=== PATIENT | female | born 1955 | race Caucasian/White ===

== ENCOUNTER 2019-03-29 08:44 | Outpatient (REF) | payer BC, SELFPAY ==
[2019-03-29 11:29] LABS: Estmated Average Glucose 137; Hemoglobin A1C 6.4 % (4.0-6.0)
[2019-03-29 13:21] LABS: Chol HDL Ratio 5.11 mg/dL (0.0-4.40); Cholesterol 225 mg/dL (0-200); Glucose 116 mg/dL (65-115); HDL Cholesterol 44 mg/dL (60-100); LDL Cholesterol Calculated 140 mg/dL (50-129); LDL HDL Ratio 3.18 RATIO (0.00-3.22); Triglycerides 204 mg/dL (0-150)
== END 2019-03-29 08:45 | disposition home or self-care (01) ==
LOC: LAB 08:44
PROVIDERS: Family Provider Family Medicine; Visit Provider Dermatology
DX: Z01.89 Encounter for other specified special examinations (principal)
CPT/HCPCS: 80061; 82947; 83036

== ENCOUNTER 2020-10-09 10:03 | Outpatient (CLI) | payer OTHER, SELFPAY ==
--- NOTE | 2020-10-09 10:10 | MM_ITS ---
WS: [id number] Bilateral screening digital mammogram, 10/09/2020 Clinical Data: SCREENING Comparison: 09/04/2018, 12/19/2016, 06/16/2015, 02/25/2014, 01/04/2013, 08/17/2011, 06/09/2009, 01/07/2008, 12/26/2006. Findings: The breast parenchymal pattern shows no glandular tissue. No spiculated masses or clustered calcifica tions are seen. There are no secondary signs of carcinoma. MM/[place] [id number] Impression: 1. Negative bilateral mammogram unchanged. 2. Recommend annual screening mammograms. BIRADS: 1-Negative FOLLOW UP: 1 Year Follow-up The CAD work checker was used.
== END 2020-10-09 10:04 | disposition home or self-care (01) ==
LOC: RADSHAW 10:08
PROVIDERS: PCP Family Medicine; Visit Provider Family Medicine
DX: Z12.31 Encounter for screening mammogram for malignant neoplasm of breast (principal)
CPT/HCPCS: 77067

== ENCOUNTER → 2020-11-09 09:51 | Outpatient (BNVA) | payer OTHER, SELFPAY | PROVIDERS: PCP Family Medicine; Visit Provider Nurse Practitioner Family | DX: Z20.822 Contact with and (suspected) exposure to COVID-19 (principal) | CPT/HCPCS: 87635 ==

== ENCOUNTER → 2021-01-12 14:17 | Outpatient (BNVA) | payer OTHER, SELFPAY | PROVIDERS: PCP Family Medicine; Visit Provider Orthopaedic Surgery | DX: M50.321 Other cervical disc degeneration at C4-C5 level (principal); M25.551 Pain in right hip; M47.812 Spondylosis without myelopathy or radiculopathy, cervical region; M54.50 Low back pain, unspecified; Z98.890 Other specified postprocedural states | CPT/HCPCS: 72050; 72110; 73502 ==

== ENCOUNTER → 2021-10-18 13:03 | Outpatient (BNVA) | payer MEDICARE, SELFPAY | PROVIDERS: PCP Family Medicine; Visit Provider Student in an Organized Health Care Education/Training Program | DX: G56.03 Carpal tunnel syndrome, bilateral upper limbs (principal) | CPT/HCPCS: 73130; 99204 ==

== ENCOUNTER 2021-10-27 06:41 | Day surgery (SDC) | payer MEDICARE, SELFPAY ==
[2021-10-26 11:55] VITALS: BMI 39.7
[2021-10-27 07:17] VITALS: BP 153/92; PULSE 57; RESP 18; TEMP 36.5; O2SAT 95
[2021-10-27] MEDS: acetaminophen 1,000 MG/100 ML PIGGYBACK 400 MG IV (07:35)
[2021-10-27] MEDS: sodium chloride 0.9% 1,000 ML 30 ML IV (07:41)
[2021-10-27] MEDS: ketorolac 30 mg/mL INJ IVP (07:45)
--- NOTE | 2021-10-27 07:58 | W.PM.OPSUD ---
Surgery/Procedure H&P Update DATE OF PROCEDURE: October 27, 2021 DATE H&P PERFORMED: 10/18/21 CHANGES TO PREVIOUS DOCUMENTATION: None PREOP DIAGNOSIS: Right carpal tunnel syndrome PRIMARY INDICATION FOR PROCEDURE: Right carpal tunnel syndrome PLANNED PROCEDURE: Operation Date: 10/27/21 08:10 Proposed Procedures p RIGHT CARPAL TUNNEL RELEASE [id number],M79.643(Right) - Denis Duron DO
[2021-10-27] MEDS: clindamycin 600 MG/50 ML PREMIX 100 MG IV (08:07)
--- NOTE | 2021-10-27 08:18 | ANES.PREANE2 ---
Pre-Anesthetic Assessment Height/Weight: Height 1.65 m Weight 108.409 kg Temp Pulse Resp BP Pulse Ox O2 Del Method 97.7 F 57 L 18 153/92 95 10/27/21 07:17 10/27/21 07:17 10/27/21 07:17 10/27/21 07:17 10/27/21 07:17 10/27/21 07:17 Preop Diagnosis: Right carpal tunnel syndrome Operation Date: 10/27/21 08:10 Proposed Procedures p RIGHT CARPAL TUNNEL RELEASE [id number],M79.643(Right) - Denis Duron, Familial anesthetic complications: none Was Beta Venecia taken within 24 hours: Yes Was Clonidine taken within 24 hours: N/A Last intake: Intake Last Liquid Date 10/27/21 Last Liquid Time 06:00 Last Solid Date 10/26/21 Last Solid Time 18:00 Social No alcohol and No tobacco Exam alert, oriented x 3, clear to auscultation bilaterally and regular rate & rhythm Airway Submandibular: within normal limits Cervical ROM: within normal limits Mallampati: Class II Dentition: full Pulmonary Sleep Apnea CV/HEM Hypertension Metabolic Morbid Obesity and Thyroid Disease [facility] [place] Lower Back Pain and Osteoarthritis/DJD Anesthetic Plan ASA status: 3 Anesthesia: MAC Medications/Allergies Home Medications Medication Instructions Recorded Confirmed Last Taken Type citalopram 20 mg tablet 20 mg PO DAILY 11/09/20 10/27/21 10/26/21 History hydrochlorothiazide 12.5 mg capsule 12.5 mg PO DAILY 11/09/20 10/27/21 10/26/21 History latanoprost 0.005 % eye drops 1 drp ophthalmic (eye) DAILY 11/09/20 10/27/21 10/26/21 History levothyroxine 75 mcg capsule 75 mcg PO DAILY 11/09/20 10/27/21 10/26/21 History metoprolol succinate 50 mg 50 mg PO DAILY 11/09/20 10/27/21 10/27/21 History tablet,extended release 24 hr gabapentin 100 mg capsule 100 mg PO DAILY 01/12/21 10/27/21 10/26/21 History Allergies Allergy/AdvReac Type Severity Reaction Status Date / Time Penicillins Allergy Intermediate rash Verified 10/27/21 07:03 Sulfa (Sulfonamide Allergy Intermediate rash Verified 10/27/21 07:03 Antibiotics) Current Medications Generic Name Dose Route Start Last Admin Trade Name Freq PRN Reason Stop Dose Admin Sodium Chloride 1,000 mls @ 30 mls/hr 10/27/21 07:00 10/27/21 07:41 Sodium Chloride 0.9% IV 10/28/21 06:59 30 mls/hr .Q24H TERRY Administration PFSH Anesthesia Medical History (Updated 10/19/21 @ 09:09 by Denis Duron DO) Left carpal tunnel syndrome Right carpal tunnel syndrome Social History Smoking and tobacco status: never smoked Data Anesthesia Cardiac Studies: No Data to Display
[2021-10-27 08:52] VITALS: BP 142/73; PULSE 54; RESP 12; TEMP 36.3; O2SAT 100
[2021-10-27 08:56] VITALS: BP 154/85; PULSE 51; RESP 12; TEMP 36.3; O2SAT 96
[2021-10-27 09:14] VITALS: BP 143/85; PULSE 52; RESP 18; TEMP 36.1; O2SAT 97
--- NOTE | 2021-10-27 13:32 | PM.OP2 ---
Brief Operative Note Date of procedure: 10/27/21 Pre-op diagnosis: Right carpal tunnel syndrome Post-op diagnosis: same Procedure Done: Right carpal tunnel release Surgeon: Denis Duron Estimated blood loss (mL): 2 Complications: None Post-op Plan: Patient to recover in PACU. She is in stable condition. She will receive appropriate discharge instructions as well as prescriptions. Given instructions pertaining to her dressing. She will follow-up in the orthopedic office with myself Dr. Duron in 2 weeks. She understands she has any question she may contact the office Condition: stable Disposition: same day Coding Level of Care Code Acute Licensed Physical Therapist for Ev Bello
--- NOTE | 2021-10-27 13:33 | PM.PACU ---
PACU note Narrative: Patient seen and evaluated in PACU immediately postoperatively. Patient dressing on in place clean dry and intact. Her fingers are warm well perfused. Compartment soft and compressible. Brisk capillary refill less than 2 seconds. Patient is able to make a fist and extend her fingers. Pain well controlled. Patient did receive local and still has some decreased sensation diffusely throughout the hand. Exam: awake (Dressing on in place clean dry and intact. Fingers warm well perfused. See narrative for detailed exam) Disposition: discharged
--- NOTE | 2021-10-27 13:35 | PM.OP ---
Operative Report Date of procedure: October 27, 2021 Pre-op diagnosis: Preop Diagnosis Right carpal tunnel syndrome Post-op diagnosis: Right carpal tunnel syndrome Procedure done: Right carpal tunnel release Specimens removed/disposition: None Surgeon: Denis Duron DO Estimated blood loss (mL): 2 14 IV fluids: See anesthesia record Complications: None Findings: See procedure note in detail Condition: stable Disposition: same day Brief History: Patient is a pleasant 66-year-old female who presented to my office with complaints of bilateral carpal tunnel syndrome. She had previous EMG findings back in 2018 which showed carpal tunnel syndrome at that time. This standpoint she is exhausted conservative treatment at this point understands the risk benefits complication alternatives and through shared decision-making she elected to proceed with surgical intervention. See my office note for further details. She understands the risk benefits complications alternatives surgical intervention. Risks included but are not limited to make a better make it worse, infection, wound dehiscence, injury to nerves or vessels, decreased function and hand. However with understanding of these risks she does agree to proceed. All questions answered. Consent was obtained in office however was reviewed in the preoperative holding area. Procedure: Patient was seen evaluated in the preoperative holding area. Consent was reviewed with patient. The correct extremity was then marked. Patient seen evaluated by anesthesia. She was taken to the operative suite by the anesthesia department and transferred to the OR table in supine position with an arm table to the right upper extremity. She then underwent anesthesia per the anesthesia department. A nonsterile tourniquet applied to the right upper extremity. The right upper extremity was then prepped and draped in standard orthopedic fashion. Patient received appropriate preoperative antibiotics. Final timeout performed. Esmarch tourniquet was used to exsanguinate the right upper extremity tourniquet was inflated to 250 mmHg. I next luc out my landmarks of Freeman's cardinal line as well as the line of the fourth ray. This marked the distal extent of my incision and in line with the fourth ray on the ulnar side through patient's longitudinal crease directly over the carpal tunnel a small incision was then made. 15 blade scalpel excision through skin subcutaneous tissue. Directly down over to the palmar fascia. The palmar fascia was then split longitudinally. Directly under this noted was the palmaris brevis as well as the transverse carpal ligament. Sharp scalpel excision was used to feather slowly with care not to plunge and once I encountered the floor of the transverse carpal ligament I then moved to the Littler dissection scissors. Under direct visualization through loupe magnification I started with releasing the transverse carpal ligament distally Marija reach the palmar fat. Once this was appropriately released distally with no area of entrapment and care to stay directly onto the transverse ligament I then moved proximally. Blunt spread dissection was made superiorly to the transverse carpal ligament. I then placed a retractor superficial to the transverse carpal ligament under direct visualization through slow scissoring technique I then released the proximal extent of the transverse carpal ligament. Once this was done I then inspected the carpal tunnel which all including tendons appeared normal intact with no masses noted. The nerve did appear to be hourglass in shape due to significant compression. I then utilized a [place] to follow the carpal tunnel both proximally and distally. I did note a small band of medial antebrachial fascia just proximal to the wrist crease under direct visualization this was then appropriately released to prevent any chance for adhesions or other areas of entrapment. My Littler dissection scissors were curved ulnarly with care to not injure the palmar cutaneous branch. The standpoint the entire carpal tunnel was fully decompressed and released. Wound was thoroughly irrigated. I then deflated the tourniquet. Hemostasis was adequate with electrocautery as well as pressure. I then closed the skin incision with interrupted horizontal mattress nylon suture. Patient was then dressed with Xeroform 4 x 4's Curlex and a Michelet wrap for a bulky soft dressing. She was awakened from anesthesia and taken to PACU in stable condition. Disposition: Patient recovered in PACU. Patient to discharge later today. Patient received appropriate discharge directions as well as pain medication postoperatively. She understands her instructions and will follow up with me in office in 2 weeks. Patient understands if she had any questions she can contact the office.
--- NOTE | 2021-10-27 14:45 | ANE.PACU2 ---
Inpatient post-anesthesia follow up: Airway intact: Yes Vital signs: Temperature 97 F Pulse Rate 52 Respiratory Rate 18 Blood Pressure 143/85 Pulse Oximetry 97 Oxygen Delivery Me thod Room Air Oxygen Flow Rate Fraction of Inspir ed Oxygen Hydration adequate: Yes Nausea and vomiting: No Pain level: 1 Mental status: Baseline
== END 2021-10-27 09:48 | disposition home or self-care (01) ==
PROVIDERS: PCP Family Medicine; Visit Provider Student in an Organized Health Care Education/Training Program
PROC: (CPT 64721; principal; 2021-10-27 08:00)
DX: G56.03 Carpal tunnel syndrome, bilateral upper limbs (principal); G47.30 Sleep apnea, unspecified; I10 Essential (primary) hypertension; E07.9 Disorder of thyroid, unspecified; E66.01 Morbid (severe) obesity due to excess calories; Z68.39 Body mass index [BMI] 39.0-39.9, adult; Z88.0 Allergy status to penicillin; Z88.2 Allergy status to sulfonamides
CPT/HCPCS: 64721; J1100; J1885; J2250; J2405; J2704; J2795; J3010; J3490; J7030

== ENCOUNTER → 2021-11-18 08:57 | Outpatient (BNVA) | payer MEDICARE, SELFPAY | PROVIDERS: PCP Family Medicine; Visit Provider Surgery | DX: Z12.11 Encounter for screening for malignant neoplasm of colon (principal) | CPT/HCPCS: 99024 ==

== ENCOUNTER → 2021-11-19 09:37 | Outpatient (BNVA) | payer MEDICARE, SELFPAY | PROVIDERS: PCP Family Medicine; Visit Provider Student in an Organized Health Care Education/Training Program | DX: G56.01 Carpal tunnel syndrome, right upper limb (principal) | CPT/HCPCS: 99024 ==

== ENCOUNTER → 2021-11-24 08:55 | Outpatient (BNVA) | payer MEDICARE, SELFPAY | PROVIDERS: PCP Family Medicine; Visit Provider Family Medicine | DX: I10 Essential (primary) hypertension (principal); E03.9 Hypothyroidism, unspecified; M19.90 Unspecified osteoarthritis, unspecified site | CPT/HCPCS: 80053; 80061; 84443 ==

== ENCOUNTER 2022-01-07 08:27 | Day surgery (SDC) | payer MEDICARE, SELFPAY ==
[2022-01-05 11:32] VITALS: BMI 39.1
[2022-01-07 08:47] VITALS: BP 178/107; PULSE 61; RESP 18; TEMP 35.9; O2SAT 97
[2022-01-07] MEDS: sodium chloride 0.9% 1,000 ML 30 ML IV (09:04)
--- NOTE | 2022-01-07 09:29 | W.PM.OPSFHP ---
Same Day Surgery H&P Indication for Procedure/HPI DATE OF PROCEDURE: January 07, 2022 CHIEF COMPLAINT/INDICATIONFOR SURGICAL PROCEDURE: Screening colonoscopy PREOP DIAGNOSIS: Screening colonoscopy PLANNED PROCEDURE: Operation Date: 01/07/22 10:00 Proposed Procedures p Colonoscopy 00639,Z12.11(Not Applicable) - Epifanio Lott MD This is a pleasant 66 years old female patient comes today for screening colonoscopy. Patient had colonoscopy before 10 years and was reported as normal per her description. Had surgery for anal fissure by Dr. Ryan at the time of her gallbladder surgery and she describes it. Reports her father had history of colon cancer in his 70s. ROS All systems have been reviewed negative except as for the above or per problem list. Medications/Allergies* Home Medications Medication Instructions Recorded Confirmed Type latanoprost 0.005 % eye drops 1 drp ophthalmic (eye) DAILY 11/09/20 01/05/22 History metoprolol succinate 50 mg 50 mg PO DAILY 11/09/20 01/05/22 History tablet,extended release 24 hr gabapentin 100 mg capsule 100 mg PO DAILY 01/12/21 01/05/22 History Allergies/Adverse Reactions Allergy/AdvReac Type Severity Reaction Status Date / Time Penicillins Allergy Intermediate rash Verified 01/07/22 09:34 Sulfa (Sulfonamide Allergy Intermediate rash Verified 01/07/22 09:34 Antibiotics) Current Medications: Generic Name Dose Route Start Last Admin Trade Name Freq PRN Reason Stop Dose Admin Sodium Chloride 1,000 mls @ 30 mls/hr 01/07/22 08:45 01/07/22 09:04 Sodium Chloride 0.9% IV 01/08/22 08:44 30 mls/hr .Q24H TERRY Administration Pertinent History/Comorbid Conditions* Medical History (Updated 12/17/21 @ 13:13 by John Pérez MD) Hypertension Hypothyroid Left carpal tunnel syndrome Osteoarthritis Right carpal tunnel syndrome Social History Smoking and tobacco status: never smoked Pertinent Exam Findings alert, oriented x 3, clear to auscultation bilaterally, regular rate & rhythm and procedure specific exam findings (Abdominal exam nontender nondistended soft) Recommendations Surgery/Procedure today (Colonoscopy with possible biopsy) Other Plans: Plan of care; After thorough history and physical examination and reviewing the chart, plan to perform screening colonoscopy. I discussed with the patient in details the risks,benefits,alternatives and indications.The risk of aspiration, bleeding, soft tissue injury, perforation of the colon ,missed lesions and other potential concomitant complications were explained to the patient in details,also the potential need for Laproscoy/Laparotomy to repair any related complications including but not limited to colectomy and or Closotomy.The patient understood this well and did agree to proceed. Rationale was carefully and clearly discussed with the patient.Appropriate informed consent have been reviewed and signed All questions have been answered and all concerns have been addressed to patient's satisfaction. Verbal and written Instructions were given to the patient for colonoscopy prep Coding Level of Care Code Acute Service Unit Operator for Ev Bello
--- NOTE | 2022-01-07 09:38 | ANES.PREANE2 ---
Pre-Anesthetic Assessment Height/Weight: Height 1.65 m Weight 106.594 kg Temp Pulse Resp BP Pulse Ox O2 Del Method 96.7 F L 61 18 178/107 97 01/07/22 08:47 01/07/22 08:47 01/07/22 08:47 01/07/22 08:47 01/07/22 08:47 01/07/22 08:47 Preop Diagnosis: Screening colonoscopy Operation Date: 01/07/22 10:00 Proposed Procedures p Colonoscopy 81448,Z12.11(Not Applicable) - Epifanio Lott MD Was Beta Venecia taken within 24 hours: Yes Last intake: Intake Last Liquid Date 01/06/22 Last Liquid Time 21:30 Last Solid Date 01/05/22 Last Solid Time 18:00 Social No alcohol and No tobacco Exam alert, oriented x 3, clear to auscultation bilaterally and regular rate & rhythm History/ROS No significant history except as noted and No significant complaints Pulmonary Sleep Apnea CV/HEM Hypertension None reported Hepatic None reported GI None reported Metabolic Morbid Obesity [facility] [place] Fibromyalgia and Osteoarthritis/DJD Anesthetic Plan ASA status: 3 Anesthesia: Anesthesia Evaluation and MAC Risk of > 500 ml blood loss (7ml/kg in children): No Medications/Allergies Home Medications Medication Instructions Recorded Confirmed Last Taken Type latanoprost 0.005 % eye drops 1 drp ophthalmic (eye) DAILY 11/09/20 01/05/22 01/06/22 History metoprolol succinate 50 mg 50 mg PO DAILY 11/09/20 01/05/22 01/06/22 History tablet,extended release 24 hr gabapentin 100 mg capsule 100 mg PO DAILY 01/12/21 01/05/22 01/06/22 History citalopram 20 mg tablet 20 mg PO DAILY #90 tabs 12/15/21 01/05/22 01/06/22 Rx hydrochlorothiazide 12.5 mg capsule 12.5 mg PO DAILY #90 caps 12/15/21 01/05/22 01/07/22 06:30 Rx levothyroxine 75 mcg capsule 75 mcg PO DAILY #90 caps 12/15/21 01/05/22 01/07/22 06:30 Rx c-pap supplies #1 ea 12/21/21 01/05/22 01/06/22 Rx Allergies Allergy/AdvReac Type Severity Reaction Status Date / Time Penicillins Allergy Intermediate rash Verified 01/07/22 09:34 Sulfa (Sulfonamide Allergy Intermediate rash Verified 01/07/22 09:34 Antibiotics) Current Medications Generic Name Dose Route Start Last Admin Trade Name Freq PRN Reason Stop Dose Admin Sodium Chloride 1,000 mls @ 30 mls/hr 01/07/22 08:45 01/07/22 09:04 Sodium Chloride 0.9% IV 01/08/22 08:44 30 mls/hr .Q24H TERRY Administration PFSH Anesthesia Medical History (Updated 12/17/21 @ 13:13 by John Pérez MD) Hypertension Hypothyroid Left carpal tunnel syndrome Osteoarthritis Right carpal tunnel syndrome Social History Smoking and tobacco status: never smoked Data Anesthesia Cardiac Studies: No Data to Display
[2022-01-07 10:16] VITALS: BP 129/61; PULSE 60; RESP 16; TEMP 36.1; O2SAT 96
[2022-01-07 10:25] VITALS: BP 120/67; PULSE 56; RESP 16; O2SAT 96
[2022-01-07 10:30] VITALS: BP 132/76; PULSE 57; RESP 16; O2SAT 96
--- NOTE | 2022-01-07 12:42 | ANE.PACU2 ---
Inpatient post-anesthesia follow up: Airway intact: Yes Vital signs: Temperature 97 F Pulse Rate 57 Respiratory Rate 16 Blood Pressure 132/76 Pulse Oximetry 96 Oxygen Delivery Me thod Room Air Oxygen Flow Rate 4 Fraction of Inspir ed Oxygen Hydration adequate: Yes Nausea and vomiting: No Pain level: 1 Mental status: Baseline
== END 2022-01-07 10:40 | disposition home or self-care (01) ==
PROVIDERS: PCP Family Medicine; Visit Provider Surgery
PROC: 0DJD8ZZ Inspection of Lower Intestinal Tract, Via Natural or Artificial Opening Endoscopic (ICD-10-PCS; CPT 45378; principal; 2022-01-07 10:00)
DX: Z12.11 Encounter for screening for malignant neoplasm of colon (principal); K57.30 Diverticulosis of large intestine without perforation or abscess without bleeding; I10 Essential (primary) hypertension; E03.9 Hypothyroidism, unspecified; M19.90 Unspecified osteoarthritis, unspecified site; G47.30 Sleep apnea, unspecified; M79.7 Fibromyalgia
CPT/HCPCS: G0121; J7030

== ENCOUNTER → 2022-04-18 15:31 | Outpatient (BNVA) | payer MEDICARE, SELFPAY | PROVIDERS: PCP Family Medicine; Visit Provider Family Medicine | DX: G56.01 Carpal tunnel syndrome, right upper limb (principal); E03.9 Hypothyroidism, unspecified; I10 Essential (primary) hypertension | CPT/HCPCS: 84443 ==

== ENCOUNTER 2022-08-10 07:46 | Outpatient (CLI) | payer MEDICARE, SELFPAY ==
--- NOTE | 2022-08-10 08:02 | MM_ITS ---
WS: [id number] SCREENING DIGITAL BREAST TOMOSYNTHESIS MAMMOGRAM WITH CAD HISTORY: SCREENING COMPARISON: 10/09/2020, 09/04/2018 Bilateral CC and MLO with tomosynthesis and synthetic mammography submitted. Computer aided detection analyzed. Breast composition: There are scattered areas of fibroglandular density. Increasing size of the lobul ated mass LEFT breast at 6:00, anterior to middle depth. Mass measures 14 x 8 mm. There are additiona l scattered asymmetries and calcifications which are stable. MM/[place] [id number] IMPRESSION: BI-RADS: 0-Incomplete: Need additional imaging evaluation FOLLOW UP: Need Additional Imaging Recommendation: Limited LEFT breast ultrasound 6:00.
== END 2022-08-10 07:47 | disposition home or self-care (01) ==
PROVIDERS: PCP Family Medicine; Visit Provider Family Medicine
DX: Z12.31 Encounter for screening mammogram for malignant neoplasm of breast (principal); N63.25 Unspecified lump in the left breast, overlapping quadrants
CPT/HCPCS: 77063; 77067

== ENCOUNTER → 2022-08-12 09:46 | Outpatient (BNVA) | payer MEDICARE, SELFPAY | PROVIDERS: PCP Family Medicine; Visit Provider Student in an Organized Health Care Education/Training Program | DX: M70.62 Trochanteric bursitis, left hip (principal) | CPT/HCPCS: 20610; 99214; J3301; J3490 ==

== ENCOUNTER 2022-09-13 12:26 | Outpatient (CLI) | payer MEDICARE, SELFPAY ==
--- NOTE | 2022-09-13 12:40 | US_ITS ---
WS: [id number] ULTRASOUND LEFT BREAST HISTORY: ABNORMAL MAMMO COMPARISON: 08/10/2022 TECHNIQUE: 2-D and Doppler. Lobulated cyst at 6:00, 2 cm from the nipple measures 1.2 x 0.9 x 0.8 cm. This corresponds in size an d shape to the mammographic abnormality. There are additional smaller cysts at 6:00. No solid mass. US/US breast LT limited* [id number] IMPRESSION: BI-RADS: 2-Benign FOLLOW-UP: 1 Year Follow-up Increasing size of the mass in the LEFT breast at 6:00 corresponds to a benign cyst.
== END 2022-09-13 12:27 | disposition home or self-care (01) ==
PROVIDERS: PCP Family Medicine; Visit Provider Family Medicine
DX: N60.02 Solitary cyst of left breast (principal); R92.8 Other abnormal and inconclusive findings on diagnostic imaging of breast
CPT/HCPCS: 76642; J3301; J3490

== ENCOUNTER → 2022-11-22 14:46 | Outpatient (BNVA) | payer MEDICARE, SELFPAY | PROVIDERS: PCP Family Medicine; Visit Provider Student in an Organized Health Care Education/Training Program | DX: M70.62 Trochanteric bursitis, left hip; S73.192A Other sprain of left hip, initial encounter; X58.XXXA Exposure to other specified factors, initial encounter | CPT/HCPCS: 99213 ==

== ENCOUNTER 2023-06-11 07:41 | Emergency (ER) | payer MEDICARE, SELFPAY ==
[2023-06-11] VITALS (14 sets, daily range): BP systolic 152–203; BP diastolic 85–109; PULSE 50–66; RESP 12–18; TEMP 36.4; O2SAT 97–100; BMI 39.2
--- NOTE | 2023-06-11 08:08 | CTR_ITS ---
PROCEDURE INFORMATION: Exam: CT Head Without Contrast Exam date and time: 06/11/2023 8:25 AM Age: 67 years old Clinical indication: Dizziness and visual disturbance; Additional info: Dizziness vision changes TECHNIQUE: Imaging protocol: Computed tomography of the head without contrast. Radiation optimization: All CT scans at this facility use at least one of these dose optimization techniques: automated exposure control; mA and/or kV adjustment per patient size (includes targeted exams where dose is matched to clinical indication); or iterative reconstruction. COMPARISON: CR XR cervical spine 4-5V [id number] 01/12/2021 2:24 PM RADIATION DOSE METRICS: Total DLP (mGy-cm): 1075.68 FINDINGS: Brain: Normal. No hemorrhage. Unremarkable white matter. No mass effect. Cerebral ventricles: No ventriculomegaly. Paranasal sinuses: Visualized sinuses are unremarkable. No fluid levels. Mastoid air cells: Visualized mastoid air cells are well aerated. Bones/joints: Unremarkable. No acute fracture. Soft tissues: Unremarkable. CT/CT head wo con* [id number] IMPRESSION: No acute intracranial abnormality.
--- NOTE | 2023-06-11 08:08 | XRR_ITS ---
PROCEDURE INFORMATION: Exam: XR Chest Exam date and time: 06/11/2023 8:24 AM Age: 67 years old Clinical indication: Cough and dyspnea; Additional info: Dyspnea/cough TECHNIQUE: Imaging protocol: Radiologic exam of the chest. Views: 1 view. COMPARISON: CR XR cervical spine 4-5V [id number] 01/12/2021 2:24 PM FINDINGS: Lungs: Unremarkable. No consolidation. Pleural spaces: Unremarkable. No pleural effusion. No pneumothorax. Heart/Mediastinum: Unremarkable. No cardiomegaly. Bones/joints: Degenerative changes in the bones. Cervical fixation hardware is partially imaged. XR/XR chest 1V portable [id number] IMPRESSION: No acute cardiopulmonary disease.
--- NOTE | 2023-06-11 08:41 | ED_ITS ---
HPI - Dizziness 2 General: Chief Complaint: Dizziness Stated Complaint: dizzy, double vision Time Seen by Provider: 06/11/23 07:42 Source: patient Mode of arrival: ambulatory History of Present Illness: HPI Narrative: 67-year-old female presents to the emerg ency room with complaint of dizziness and double vision. If she has both of her eyes open she has double vision but when she closes either eye the double vision goes away. She denies any chest pain or headache. Blood pressure is elevated she did take all of her blood pressure medicine takes her Toprol at night and hydrochlorothiazide in the morning. MD elicited complaint: dizziness Timing: gradual onset Associated symptoms: Denies abnormal vaginal bleeding, change in hearing, chest pain, chills, cough, diaphoresis, ear discharge, ear pressure, fevers/chills, headache(s), malaise, nausea, nasal congestion, palpitations, rash, short of breath, syncope, tinnitus, vomiting or weakness Review of Systems 2 Const: Denies: fever(s), chills, malaise or diaphoresis ENMT: Denies: ear discharge, change in hearing, tinnitus or nasal congestion Card: Denies: chest pain, palpitations or syncope Resp: Denies: dyspnea GI: Denies: abdominal pain, nausea or vomiting : Denies: dysuria, urinary frequency or urinary urgency Musc: Denies: neck pain or back pain Skin/Breast: Denies: rash Neuro: Denies: headache(s) PFSH ED 2 PFSH: Medical History Osteoarthritis Hypothyroid Hypertension Left carpal tunnel syndrome Right carpal tunnel syndrome Surgical History H/O cervical spine surgery H/O Spinal surgery Social History Smoking and tobacco/nicotine status: never used tobacco/nicotine Alcohol intake: never Physical Exam 2 Const: COMMON NORMALS: no acute distress GENERAL APPEARANCE: cooperative and comfortable ORIENTATION/CONSCIOUSNESS: Yes awake, Yes oriented to person, Yes oriented to place and Yes oriented to time HENMT: COMMON NORMALS: normocephalic, atraumatic and hearing grossly normal bilaterally HEAD & SCALP: normocephalic and atraumatic Resp: COMMON NORMALS: normal respiratory effort, No retractions, No use of accessory muscles and clear to auscultation bilaterally AUSCULTATION: clear to auscultation bilaterally Cardio: COMMON NORMALS: regular rate, regular rhythm and No murmurs present (Cardio) RATE: regular rate RHYTHM: regular rhythm GI: COMMON NORMALS: Soft to palpation and No hepatosplenomegaly present A USCULTATION: Yes normoactive bowel sounds PALPATION: Yes Soft to palpation, No Tenderness to palpation present (GI), No Guarding due to palpation present (GI) and Yes No hepatosplenomegaly present Extremity: COMMON NORMALS: normal to inspection, capillary refill normal, no clubbing, cyanosis or edema, no calf tenderness and no pedal edema Neuro: SENSORIUM/ORIENTATION: Yes oriented to person, Yes oriented to place and Yes oriented to time OTHER: No focal neurologic deficits noted no facial asymmetry equal movements in all extremities. No nystagmus. Skin: COMMON NORMALS: no rashes or lesions noted GENERAL SKIN EXAM: no rashes or lesions noted Course 2 Vital Signs: Vital signs: Vital Signs Temperature 97.5 F L 06/11/23 13:30 Pulse Rate 54 L 06/11/23 13:30 Respiratory Rate 15 06/11/23 13:30 Blood Pressure 195/89 06/11/23 13:30 Pulse Oximetry 100 06/11/23 13:30 Oxygen Delivery Me thod Room Air 06/11/23 13:13 MDM - Dizziness Medical Decision Making Dizziness has improved blood pressure remains slightly elevated. She has a distant pulpy when both eyes are open but she can close 1 eye or the other NC fine. There is no big discrepancy positioning of her eyes when we look at her directly. Pupils reactive bilaterally discussed Dr. 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 Will discharge patient home have her take aspirin daily we did do a CT and CTA both of which were unremarkable. She is to contact Dr. King office tomorrow for follow-up return if she has further problems. Medical Records I reviewed the patient's medical records. Lab Data I reviewed the patient's lab results. 06/11/23 08:38 06/11/23 08:38 Radiology Impressions Chest X-Ray 06/11/23 08:08 IMPRESSION: No acute cardiopulmonary disease. Head CT 06/11/23 08:08 IMPRESSION: No acute intracranial abnormality. Head/Neck CTA 06/11/23 10:29 IMPRESSION: No large vessel stenosis or occlusion. IMPRESSION: No stenosis or occlusion. REFERENCES: NASCET CRITERIA. The degree of stenosis in the cervical segment of the internal carotid artery is based on NASCET criteria. Normal is no stenosis. Mild is less than 50% stenosis. Moderate is 50-69% stenosis. Severe is 70% to 99% stenosis. Total occlusion is no detectable patent lumen. Laboratory Results WBC 5.69 10^3/uL (3.29-11.43) 06/11/23 08:38 RBC 4.66 10^6/uL (3.85-5.65) 06/11/23 08:38 Hgb 13.10 g/dL (11.27-16.99) 06/11/23 08:38 Hct 39.2 % (36-47) 06/11/23 08:38 MCV 84.1 fl (85-98) L 06/11/23 08:38 MCH 28.1 pg (27-33) 06/11/23 08:38 MCHC 33.4 g/dL (30-55) 06/11/23 08:38 RDW 14.5 % (12.1-15.1) 06/11/23 08:38 Plt Count 227 10^3/cmm (157-399) 06/11/23 08:38 MPV 8.8 fL (7.4-10.4) 06/11/23 08:38 Neut % (Auto) 56.0 % 06/11/23 08:38 Lymph % (Auto) 33.0 % 06/11/23 08:38 [place] % (Auto) 8.4 % 06/11/23 08:38 Eos % (Auto) 1.9 % 06/11/23 08:38 Baso % (Auto) 0.5 % 06/11/23 08:38 Neut # (Auto) 3.18 10^3/uL (1.8-7.7) 06/11/23 08:38 Lymph # (Auto) 1.9 10^3/uL (0.8-4.8) 06/11/23 08:38 [place] # (Auto) 0.5 10^3/uL (0.2-0.9) 06/11/23 08:38 Eos # (Auto) 0.1 10^3/uL (0.0-0.8) 06/11/23 08:38 Baso # (Auto) 0.0 10^3/uL (0.0-0.1) 06/11/23 08:38 Nucleated RBC % (auto) 0 % 06/11/23 08:38 Nucleated RBCs # 0.0 /100WBC 06/11/23 08:38 Sodium 137 mmol/L (136-145) 06/11/23 08:38 Potassium 3.9 mmol/L (3.5-5.1) 06/11/23 08:38 Chloride 103 mmol/L (98-107) 06/11/23 08:38 Carbon Dioxide 25 mmol/L (22-29) 06/11/23 08:38 Anion Gap 12.9 (5-19) 06/11/23 08:38 BUN 15 mg/dL (8-23) 06/11/23 08:38 Creatinine 0.7 mg/dL (0.5-0.9) 06/11/23 08:38 GFR Calculation 83.7 mL/min (90-130) L 06/11/23 08:38 Glucose 120 mg/dL (65-115) H 06/11/23 08:38 Calculated Osmolality 286 mOsm/kg (285-295) 06/11/23 08:38 Calcium 9.6 mg/dL (8.5-10.5) 06/11/23 08:38 Total Bilirubin 0.5 mg/dL (0.15-1.2) 06/11/23 08:38 AST 16 U/L (0-32) 06/11/23 08:38 ALT 17 U/L (0-33) 06/11/23 08:38 Alkaline Phosphatase 51 U/L (35-105) 06/11/23 08:38 Total Protein 7.0 g/dL (6.6-8.7) 06/11/23 08:38 Albumin 4.3 g/dL (3.5-5.2) 06/11/23 08:38 Globulin 2.7 g/dL (1.3-4.6) 06/11/23 08:38 All radiology interpretation(s) finalized by discharge Discharge Plan Discharge Patient Disposition: Home Clinical Impression: Fourth cranial nerve palsy, Hypertension Condition: Stable Prescriptions: New aspirin 81 mg tablet,delayed release (DR/EC) 81 mg PO DAILY Qty: 30 0RF No Action latanoprost 0.005 % drops 1 drp ophthalmic (eye) BEDTIME (DME) c-pap supplies See Rx Instructions .Route .MEDSUPPLY Qty: 1 7RF Rx Instructions: As directed citalopram 20 mg tablet 20 mg PO DAILY Qty: 90 3RF hydrochlorothiazide 12.5 mg capsule 12.5 mg PO DAILY Qty: 90 3RF levothyroxine 75 mcg capsule 75 mcg PO DAILY Qty: 90 3RF celecoxib 200 mg capsule 200 mg PO DAILY PRN (Reason: pain) Qty: 30 11RF metoprolol succinate 50 mg tablet extended release 24 hr 50 mg PO QPM gabapentin 100 mg capsule 100 mg PO BEDTIME Discharge Orders: Discharge ED (Routine); Ordered 06/11/23 Ordered By: Boom Mcnally Referrals: Darryn King [Physician] - John Pérez MD [Primary Care Provider] - Patient Instructions: Opioid Safety, Pain Management Activity Restrictions/Additional Instructions: Thank you for choosing [facility] for your healthcare needs today. Please realize this is an emergency room and that we are providing you with a medical screening exam and this may not be complete and all inclusive of all the testing and or work up that you may need to determine your ailment or severity of your illness. It is very important that you follow up as instructed or that you return to the Emergency Department should you have concerns or if your condition changes or worsens in any way. You appear to have a cranial nerve palsy likely the 4th cranial nerve. CT of your head and CT of your head and neck did not show any significant abnormalities masses occlusions or aneurysms. Recommend that you follow-up with senior software development engineer contact Dr. King's office tomorrow. Also recommend that you take aspirin daily. Your blood pressure was noted to be a little bit high today in the emergency room should follow-up with your primary care doctor if it persists elevated they may need to adjust medications for you. Return if you notice significant change in symptoms Coding Level of Care Code ED Database Administration Associate for Ev Bello
[2023-06-11 08:43] LABS: Basophils % 0.5 %; Eosinophils # 0.1 10^3/uL (0.0-0.8); Eosinophils % 1.9 %; Hematocrit 39.2 % (36-47); Lymphocytes # 1.9 10^3/uL (0.8-4.8); Mean Corpuscular HGB Conc 33.4 g/dL (30-55); Mean Corpuscular Hemoglobin 28.1 pg (27-33); Mean Corpuscular Volume 84.1 fl (85-98); Mean Platelet Volume 8.8 fL (7.4-10.4); Monocytes # 0.5 10^3/uL (0.2-0.9); Monocytes % 8.4 %; Neutrophils # 3.18 10^3/uL (1.8-7.7); Nucleated Red Blood Cells % 0 %; Platelet Count 227 10^3/cmm (157-399); Red Blood Count 4.66 10^6/uL (3.85-5.65); Red Cell Distribution Width 14.5 % (12.1-15.1); White Blood Count 5.69 10^3/uL (3.29-11.43)
--- NOTE | 2023-06-11 08:45 | ECG_ITS ---
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 Measurements Intervals [place] Rate: 52 P: 45 [place]: 178 QRS: 42 QRSD: 89 T: 31 QT: 439 QTc: 410 Interpretive Statements SINUS BRADYCARDIA NONSPECIFIC T-WAVE ABNORMALITY No previous ECG available for comparison Electronically Signed On 06-12-2023 14:58:27 CDT by Waqas Schaffer M.D. [id number]
[2023-06-11 09:00] LABS: Alanine Aminotransferase 17 U/L (0-33); Albumin Level 4.3 g/dL (3.5-5.2); Alkaline Phosphatase 51 U/L (35-105); Anion Gap 12.9 (5-19); Aspartate Amino Transferase 16 U/L (0-32); Blood Urea Nitrogen 15 mg/dL (8-23); Calcium 9.6 mg/dL (8.5-10.5); Carbon Dioxide 25 mmol/L (22-29); Chloride 103 mmol/L (98-107); Globulin 2.7 g/dL (1.3-4.6); Glomerular Filtration Rate 83.7 mL/min (90-130); Glucose 120 mg/dL (65-115); Osmolality Calculated 286 mOsm/kg (285-295); Potassium 3.9 mmol/L (3.5-5.1); Sodium 137 mmol/L (136-145); Total Bilirubin 0.5 mg/dL (0.15-1.2)
--- NOTE | 2023-06-11 09:03 | PC.NURSE ---
Took patient via wheelchair to look at the [facility] eye chart. With one eye open (either eye) the patient can read the top big E. With one eye open (either eye) patient states that the letters are blurry. With both eyes open she states the chart is not on the wall but on the wooden door and is very blurry.
--- NOTE | 2023-06-11 09:26 | PC.NURSE ---
Held up a sheet of paper 2 feet in front of the patient, with one eye closed she can read all six words on the paper. With both eyes open she can still read the words it is a little difficult because the words keep moving up and down and side to side.
--- NOTE | 2023-06-11 10:29 | CTR_ITS ---
PROCEDURE INFORMATION: Exam: CTA Head With Contrast, Arteriography Exam date and time: 06/11/2023 11:42 AM Age: 67 years old Clinical indication: Dizziness and giddiness and visual disturbance; Prior surgery; Surgery date: 6+ months; Surgery type: Neck; Additional info: 3rd cranial nerve palsy TECHNIQUE: Imaging protocol: Computed tomographic angiography of the head with contrast. Exam focused on the arteries. 3D rendering (Not supervised by radiologist): MIP and/or 3D reconstructed images were created by the technologist. Radiation optimization: All CT scans at this facility use at least one of these dose optimization techniques: automated exposure control; mA and/or kV adjustment per patient size (includes targeted exams where dose is matched to clinical indication); or iterative reconstruction. Contrast material: OMNI 350; Contrast volume: 100 ml; Contrast route: INTRAVENOUS (IV); COMPARISON: CT head wo con* [id number] 06/11/2023 8:25 AM RADIATION DOSE METRICS: Total DLP (mGy-cm): 488.42 FINDINGS: ANTERIOR CIRCULATION: Right internal carotid artery: Intracranial segment is patent with no significant stenosis. No aneurysm. Right middle cerebral artery: No occlusion or significant stenosis. No aneurysm. Right anterior cerebral artery: The A1 segment is hypoplastic. No occlusion or significant stenosis. No aneurysm. Left internal carotid artery: Intracranial segment is patent with no significant stenosis. No aneurysm. Left middle cerebral artery: No occlusion or significant stenosis. No aneurysm. Left anterior cerebral artery: No occlusion or significant stenosis. No aneurysm. POSTERIOR CIRCULATION: Right vertebral artery: No occlusion or significant stenosis. No aneurysm. Left vertebral artery: No occlusion or significant stenosis. No aneurysm. Basilar artery: No occlusion or significant stenosis. No aneurysm. Right posterior cerebral artery: No occlusion or significant stenosis. No aneurysm. Left posterior cerebral artery: No occlusion or significant stenosis. No aneurysm. Brain: No definite mass, mass effect, or midline shift. Cerebral ventricles: No ventriculomegaly. Bones/joints: Unremarkable. No acute fracture. Soft tissues: Unremarkable. PROCEDURE INFORMATION: Exam: CTA Neck With Contrast Exam date and time: 06/11/2023 11:42 AM Age: 67 years old Clinical indication: Dizziness and giddiness and visual disturbance; Prior surgery; Surgery date: 6+ months; Surgery type: Neck; Additional info: 3rd cranial nerve palsy TECHNIQUE: Imaging protocol: Computed tomographic angiography of the neck with contrast. Exam focused on the cervical segments of the vasculature. 3D rendering (Not supervised by radiologist): MIP and/or 3D reconstructed images were created by the technologist. Radiation optimization: All CT scans at this facility use at least one of these dose optimization techniques: automated exposure control; mA and/or kV adjustment per patient size (includes targeted exams where dose is matched to clinical indication); or iterative reconstruction. Contrast material: OMNI 350; Contrast volume: 100 ml; Contrast route: INTRAVENOUS (IV); COMPARISON: CT head wo [facility]* [id number] 06/11/2023 8:25 AM RADIATION DOSE METRICS: Total DLP (mGy-cm): 488.42 FINDINGS: Right common carotid artery: No stenosis. No dissection or occlusion. Right internal carotid artery: No stenosis of the extracranial segment. No dissection or occlusion. Right external carotid artery: No occlusion or stenosis of the origin. Left common carotid artery: No stenosis. No dissection or occlusion. Left internal carotid artery: No stenosis of the extracranial segment. No dissection or occlusion. Left external carotid artery: No occlusion or stenosis of the origin. Right vertebral artery: No stenosis. No dissection or occlusion. Left vertebral artery: No stenosis. No dissection or occlusion. Soft tissues: Normal. No significant soft tissue swelling. Bones/joints: No acute fracture. CT/CT angio headneck* [id number] IMPRESSION: No large vessel stenosis or occlusion. IMPRESSION: No stenosis or occlusion. REFERENCES: NASCET CRITERIA. The degree of stenosis in the cervical segment of the internal carotid artery is based on NASCET criteria. Normal is no stenosis. Mild is less than 50% stenosis. Moderate is 50-69% stenosis. Severe is 70% to 99% stenosis. Total occlusion is no detectable patent lumen.
[2023-06-11] MEDS: iohexol 350 mg/mL 500 mL Btl (per mL) IV (11:51)
== END 2023-06-11 13:30 | disposition home or self-care (01) ==
PROVIDERS: Emergency Provider Family Medicine; PCP Family Medicine
DX: H49.10 Fourth [trochlear] nerve palsy, unspecified eye (principal); I10 Essential (primary) hypertension
CPT/HCPCS: 70450; 70496; 70498; 71045; 80053; 85025; 93005; 99285; Q9967

== ENCOUNTER → 2023-06-14 10:40 | Outpatient (BNVA) | payer MEDICARE, SELFPAY | PROVIDERS: PCP Family Medicine; Visit Provider Family Medicine | DX: E11.9 Type 2 diabetes mellitus without complications (principal) | CPT/HCPCS: 84443 ==

== ENCOUNTER 2023-10-05 13:06 | Outpatient (CLI) | payer MEDICARE, SELFPAY ==
--- NOTE | 2023-10-05 13:14 | MM_ITS ---
WS: [id number] SCREENING DIGITAL BREAST TOMOSYNTHESIS MAMMOGRAM WITH CAD HISTORY: SCREENING COMPARISON: 08/10/2022, 10/09/2020 Bilateral CC and MLO with tomosynthesis and synthetic mammography submitted. Computer aided detection analyzed. Breast composition: There are scattered areas of fibroglandular density. There is a new 5 x 3 mm asym metry seen on the RIGHT MLO projection in the anterior breast at the level of the nipple line. Not de finitely seen on prior studies. There is an additional stable mass near 10:00 which has been present on prior studies. Benign calcifications in each breast. MM/[place] [id number] IMPRESSION: BI-RADS: 0-Incomplete: Need additional imaging evaluation FOLLOW UP: Need Additional Imaging RIGHT breast: Spot compression views (CC and MLO). True ML. Ultrasound to follo w if abnormality persists.
== END 2023-10-05 13:07 ==
LOC: RAD 13:07
PROVIDERS: PCP Family Medicine; Visit Provider Family Medicine
DX: G56.03 Carpal tunnel syndrome, bilateral upper limbs (principal); Z12.31 Encounter for screening mammogram for malignant neoplasm of breast; R92.323 Mammographic fibroglandular density, bilateral breasts
CPT/HCPCS: 77063; 77067; 95910

== ENCOUNTER 2023-11-21 09:29 | Outpatient (CLI) | payer MEDICARE, SELFPAY ==
--- NOTE | 2023-11-21 09:34 | MM_ITS ---
WS: [id number] ADDITIONAL VIEWS RIGHT MAMMOGRAM WITH DIGITAL BREAST TOMOSYNTHESIS. RIGHT BREAST ULTRASOUND HISTORY: Abnormal mammogram COMPARISON: 09/04/2018, 10/09/2020, 10/05/2023 and 08/10/2022 RIGHT MAMMOGRAM: Spot compression views and true ML with digital breast tomosynthesis and SM. Breast composition: There are scattered areas of fibroglandular density. Asymmetries persist around the nipple. There is an asymmetry in the lateral RIGHT breast which was pr esent on prior studies. The smaller nodule central to the nipple identified on the screening mammogra m is not evident on the spot compressions. There is a significant amount of overlapping soft tissue t herefore ultrasound will be performed. RIGHT BREAST ULTRASOUND 2-D and color Doppler imaging submitted. There is a small cyst central to the nipple at 12:00 measuring 0.3 x 0.2 x 0.5 cm. This is in the loc ation and corresponds to the size of the recent mammographic abnormality described. No solid mass or shadowing. MM/MM diag RT tomosynthesis [id number] IMPRESSION: BI-RADS: 2 - Benign. FOLLOW UP: 1 Year Follow-up
== END 2023-11-21 09:30 | disposition home or self-care (01) ==
PROVIDERS: PCP Family Medicine; Visit Provider Family Medicine
DX: R92.8 Other abnormal and inconclusive findings on diagnostic imaging of breast (principal); R92.323 Mammographic fibroglandular density, bilateral breasts; N60.01 Solitary cyst of right breast
CPT/HCPCS: 76642; 77061; G0279

== ENCOUNTER 2024-11-28 13:16 | Outpatient (CLI) | payer MEDICARE, SELFPAY ==
--- NOTE | 2024-11-28 13:37 | MM_ITS ---
WS: [id number] BILATERAL SCREENING DIGITAL TOMOSYNTHESIS MAMMOGRAM WITH CAD HISTORY: SCREENING COMPARISON: 11/21/2023, 10/05/2023, 08/10/2022, 10/09/2020 Bilateral CC and MLO views with tomosynthesis and synthetic mammography submitted. Computer aided detection analyzed. Breast composition: There are scattered areas of fibroglandular density. No suspicious masses, microcalcifications or architectural distortion. Scattered calcifications in each breast. There are well-circumscribed masses within each breast which are stable. MM/MM [facility] tomosynthesis [id number] IMPRESSION: BI-RADS: 2 - Benign. FOLLOW UP: 1 Year Follow-up
== END 2024-11-28 13:17 | disposition home or self-care (01) ==
LOC: RAD 13:17
PROVIDERS: PCP Family Medicine; Visit Provider Family Medicine
DX: Z12.31 Encounter for screening mammogram for malignant neoplasm of breast (principal); R92.323 Mammographic fibroglandular density, bilateral breasts; R92.1 Mammographic calcification found on diagnostic imaging of breast; N63.20 Unspecified lump in the left breast, unspecified quadrant; N63.10 Unspecified lump in the right breast, unspecified quadrant
CPT/HCPCS: 77063; 77067